=== PATIENT | male | born 1965 | race American Indian/Alaskan Native ===

== ENCOUNTER 2020-01-07 13:17 | Emergency (ER) | payer OTHER ==
[2020-01-07] MEDS ORDERED: HYDROcodone/ACETAMINOPHEN 5-325 MG TAB PO ONE (14:02)
--- NOTE | 2020-01-07 14:06 | Emergency Department Report ---
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 Patient denies any trauma however he was in a hotel near multiple beer cans on the floor when paramedics picked the patient up. Patient is complaining of right-sided rib pain he has multiple bruises which are present. Patient states he has difficulty with moving and with breathing. Patient states pain is 8 out of 10 in severity. He denies any head trauma. Patient states that he does not remember falling and just that he started having pain while laying in the bed. - Related Data Previous Rx's Medication Instructions Recorded Last Taken Type traMADoL [Ultram] 50 mg PO Q6HR PRN #10 tablet 01/07/20 Unknown Rx Allergies Allergy/AdvReac Type Severity Reaction Status Date / Time lisinopril AdvReac Unknown Verified 01/07/20 13:47 ED Review of Systems ROS: Stated complaint: RT SIDE INJURY Other details as noted in HPI Comment: All other systems reviewed and negative ED Past Medical Hx - Past Medical History Previous Medical History?: Yes Hx Hypertension: Yes Hx Diabetes: Yes Hx Pulmonary Embolism: Yes Hx HIV: Yes - Social History Smoking Status: Never Smoker Substance Use Type: Alcohol - Medications Home Medications: Home Medications Medication Instructions Recorded Confirmed Last Taken Type traMADoL [Ultram] 50 mg PO Q6HR PRN #10 tablet 01/07/20 Unknown Rx ED Physical Exam - General Limitations: No Limitations General appearance: alert, in no apparent distress - Head Head exam: Present: atraumatic, normocephalic - Eye Eye exam: Present: normal appearance - ENT ENT exam: Present: mucous membranes moist - Neck Neck exam: Present: normal inspection - Respiratory Respiratory exam: Present: normal lung sounds bilaterally, chest wall tenderness (Right-sided). Absent: respiratory distress, wheezes, rales, rhonchi - Cardiovascular Cardiovascular Exam: Present: regular rate, normal rhythm, normal heart sounds. Absent: systolic murmur, diastolic murmur, rubs, gallop - GI/Abdominal GI/Abdominal exam: Present: soft, normal bowel sounds - Rectal Rectal exam: Present: deferred - Extremities Exam Extremities exam: Present: normal inspection - Back Exam Back exam: Present: normal inspection - Neurological Exam Neurological exam: Present: alert, oriented X3 - Psychiatric Psychiatric exam: Present: normal affect, normal mood - Skin Skin exam: Present: warm, dry, intact, normal color, ecchymosis (On the right flank there appears to be several small bruises of various sizes). Absent: rash ED Course Vital Signs 01/07/20 01/07/20 01/07/20 13:30 13:48 16:32 Temperature 98.2 F Pulse Rate 71 Respiratory 18 Rate Blood Pressure 139/73 139/73 O2 Sat by Pulse 97 96 98 Oximetry 01/07/20 17:01 Temperature Pulse Rate Respiratory Rate Blood Pressure 124/93 O2 Sat by Pulse 96 Oximetry ED Medical Decision Making - Lab Data Result diagrams: 01/07/20 14:18 01/07/20 14:18 Lab Results 01/07/20 01/07/20 01/07/20 Range/Units 13:45 14:18 14:18 WBC 2.7 L (4.5-11.0) K/mm3 RBC 3.56 L (3.65-5.03) M/mm3 Hgb 11.5 L (11.8-15.2) gm/dl Hct 34.0 L (35.5-45.6) % MCV 96 H (84-94) fl MCH 32 (28-32) pg MCHC 34 (32-34) % RDW 14.0 (13.2-15.2) % Plt Count 138 L (140-440) K/mm3 Lymph % (Auto) 48.1 H (13.4-35.0) % [place] % (Auto) 9.4 H (0.0-7.3) % Eos % (Auto) 0.1 (0.0-4.3) % Baso % (Auto) 0.6 (0.0-1.8) % Lymph # 1.3 (1.2-5.4) K/mm3 [place] # 0.3 (0.0-0.8) K/mm3 Eos # 0.0 (0.0-0.4) K/mm3 Baso # 0.0 (0.0-0.1) K/mm3 Seg Neutrophils % 41.8 (40.0-70.0) % Seg Neutrophils # 1.1 L (1.8-7.7) K/mm3 PT (12.2-14.9) Sec. INR (0.87-1.13) APTT (24.2-36.6) Sec. Sodium 133 L (137-145) mmol/L Potassium 4.0 (3.6-5.0) mmol/L Chloride 101.1 (98-107) mmol/L Carbon Dioxide 21 L (22-30) mmol/L Anion Gap 15 mmol/L BUN 15 (9-20) mg/dL Creatinine 0.7 L (0.8-1.5) mg/dL Estimated GFR > 60 ml/min BUN/Creatinine Ratio 21 % Glucose 101 H (75-100) mg/dL POC Glucose 109 H (70-105) Calcium 8.2 L (8.4-10.2) mg/dL Plasma/Serum Alcohol (0-0.07) % 01/07/20 01/07/20 Range/Units 14:18 14:18 WBC (4.5-11.0) K/mm3 RBC (3.65-5.03) M/mm3 Hgb (11.8-15.2) gm/dl Hct (35.5-45.6) % MCV (84-94) fl MCH (28-32) pg MCHC (32-34) % RDW (13.2-15.2) % Plt Count (140-440) K/mm3 Lymph % (Auto) (13.4-35.0) % [place] % (Auto) (0.0-7.3) % Eos % (Auto) (0.0-4.3) % Baso % (Auto) (0.0-1.8) % Lymph # (1.2-5.4) K/mm3 [place] # (0.0-0.8) K/mm3 Eos # (0.0-0.4) K/mm3 Baso # (0.0-0.1) K/mm3 Seg Neutrophils % (40.0-70.0) % Seg Neutrophils # (1.8-7.7) K/mm3 PT 17.6 H (12.2-14.9) Sec. INR 1.42 H (0.87-1.13) APTT 32.8 (24.2-36.6) Sec. Sodium (137-145) mmol/L Potassium (3.6-5.0) mmol/L Chloride (98-107) mmol/L Carbon Dioxide (22-30) mmol/L Anion Gap mmol/L BUN (9-20) mg/dL Creatinine (0.8-1.5) mg/dL Estimated GFR ml/min BUN/Creatinine Ratio % Glucose (75-100) mg/dL POC Glucose (70-105) Calcium (8.4-10.2) mg/dL Plasma/Serum Alcohol 0.12 H (0-0.07) % - Radiology Data [facility] [address] [place] [address] Cat Scan Report Signed Patient: HAYDEE RICHARD MR#: [id number] : 1965 Acct:[id number] Age/Sex: 54 / M ADM Date: 01/07/20 Loc: ED Attending Dr: Ordering Physician: CHUCK COFFEY MD Date of Service: 01/07/20 Procedure(s): CT chest w con Accession Number(s): [id number] cc: CHUCK COFFEY MD CT CHEST WITH CONTRAST INDICATION: Right chest pain with visible bruising. TECHNIQUE: Axial CT images were obtained through the chest after 100 cc Omnipaque 350 IV contrast. Coronal and sagittal reformats were produced. All CT scans at this location are performed using CT dose reduction for ALARA by means of automated exposure control. COMPARISON: None available. FINDINGS: MEDIASTINUM: No significant abnormality. HEART: No significant abnormality. THORACIC AORTA AND ARTERIES: There is mild to moderate generalized coronary scle rosis. No additional significant abnormality. LUNGS: Mild atelectasis is seen along the lingula and left lower lobe. The lungs are otherwise clear. No pneumothorax or pleural effusion. ADDITIONAL FINDINGS: None. UPPER ABDOMEN: No acute abnormality. Gastric bypass changes appear unremarkable. The gallbladder is surgically absent. SKELETAL SYSTEM: No acute abnormality. Degenerative changes are seen throughout the spine. IMPRESSION: 1. No acute abnormality of the chest. 2. Additional findings as above. Signer Name: Bryn Patricio MD Signed: 01/07/2020 5:04 PM Workstation Name: [id number] - Medical Decision Making Patient's CT findings above. There is no evidence of any skeletal trauma. Patient likely with some muscle tear in the chest wall causing the ecchymosis. Patient to be discharged home with medication for symptomatic relief. Critical care attestation.: If time is entered above; I have spent that time in minutes in the direct care of this critically ill patient, excluding procedure time. ED Disposition Clinical Impression: Chest wall contusion Qualifiers: Encounter type: initial encounter Laterality: right Qualified Code(s): S20.211A - Contusion of right front wall of thorax, initial encounter Disposition: DC-01 TO HOME OR SELFCARE Is pt being admited?: No Does the pt Need Aspirin: No Condition: Stable Instructions: Contusion in Adults (ED) Referrals: PRIMARY CARE, [Primary Care Provider] - 3-5 Days Time of Disposition: 17:27
[2020-01-07 15:30] LABS: BUN/Creatinine Ratio 21; Basophils % (Auto) 0.6 % (0.0-1.8); Blood Urea Nitrogen 15 mg/dL (9-20); Calcium 8.2 mg/dL (8.4-10.2); Eosinophils % (Auto) 0.1 % (0.0-4.3); Hemoglobin 11.5 gm/dl (11.8-15.2); Hemolysis Index 3; Lymphocytes # (Auto) 1.3 K/mm3 (1.2-5.4); Lymphocytes % (Auto) 48.1 % (13.4-35.0); Mean Corpuscular HGB Conc 34 % (32-34); Mean Corpuscular Volume 96 fl (84-94); Monocytes # (Auto) 0.3 K/mm3 (0.0-0.8); Monocytes % (Auto) 9.4 % (0.0-7.3); Platelet Count 138 K/mm3 (140-440); Red Blood Count 3.56 M/mm3 (3.65-5.03)
[2020-01-07 15:31] LABS: INR 1.42 (0.87-1.13); Partial Thromboplastin Time 32.8 Sec. (24.2-36.6)
[2020-01-07] MEDS ORDERED: HYDROcodone/ACETAMINOPHEN 5-325 MG TAB ONE (16:35)
--- NOTE | 2020-01-07 17:08 | Cat Scan Report ---
CT CHEST WITH CONTRAST INDICATION: Right chest pain with visible bruising. TECHNIQUE: Axial CT images were obtained through the chest after 100 cc Omnipaque 350 IV contrast. Coronal and s agittal reformats were produced. All CT scans at this location are performed using CT dose reduction for ALARA by means of automated exposure control. COMPARISON: None available. FINDINGS: MEDIASTINUM: No significant abnormality. HEART: No significant abnormality. THORACIC AORTA AND ARTERIES: There is mild to moderate generalized coronary sclerosis. No additional significant abnormality. LUNGS: Mild atelectasis is seen along the lingula and left lower lobe. The lungs are otherwise clear. No pneumothorax or pleural effusion. ADDITIONAL FINDINGS: None. UPPER ABDOMEN: No acute abnormality. Gastric bypass changes appear unremarkable. The gallbladder is s urgically absent. SKELETAL SYSTEM: No acute abnormality. Degenerative changes are seen throughout the spine. IMPRESSION: 1. No acute abnormality of the chest. 2. Additional findings as above. Signer Name: Bryn Patricio MD Signed: 01/07/2020 5:04 PM Workstation Name: [id number]
[2020-01-07 18:24] VITALS: BP 142/91
== END 2020-01-07 18:23 | disposition home or self-care (01) ==
LOC: ED 13:17
DX: S20.211A Contusion of right front wall of thorax, initial encounter (principal); I10 Essential (primary) hypertension; E11.9 Type 2 diabetes mellitus without complications; Z86.711 Personal history of pulmonary embolism; Z79.01 Long term (current) use of anticoagulants; Z79.899 Other long term (current) drug therapy; Z88.6 Allergy status to analgesic agent; X58.XXXA Exposure to other specified factors, initial encounter; Y93.89 Activity, other specified; Y92.89 Other specified places as the place of occurrence of the external cause; Y99.8 Other external cause status
CPT/HCPCS: 36415; 71260; 80048; 82962; 85025; 85610; 85730; 99284; Q9967; 80320; G0480